=== PATIENT | female | born 1985 | race Caucasian/White ===

== ENCOUNTER 2016-11-15 18:20 | Inpatient (IN) | payer OTHER ==
[~2016-11-15] VITALS: Ht 162.6 cm; Wt 85.7 kg
[2016-11-15 21:15] VITALS: BP 140/80
[2016-11-15 21:30] VITALS: BP 140/80
--- NOTE | 2016-11-15 22:00 | NUR ---
RN NOTE; RECEIVED PT DIRECT ADMIT FROM [facility]. A, OX4. W/ ANXIETY AND C/O ABD PAIN. BREATHING EVENLY. NO SOB. NAD. SKIN WARM AND DRY. MEDICAL INFO AND HX WAS OBTAINED FROM THE PT AND THE MEDICAL RECORDS FROM [facility]. VS: WNL. NEEDS ATTENDED. CALL LIGHT WITHIN REACH, WILL CONT TO MONITOR AND WILL F/U W/ MD'S ORDERS.
[2016-11-15] MEDS ORDERED: Z GUARD REMEDY 2 OZ OINT TP PRN (22:30)
[2016-11-15] MEDS ORDERED: ONDANSETRON HCL/PF 4 MG/2 ML VIAL IVP PRN (22:30)
[2016-11-15] MEDS ORDERED: MAGNESIUM HYDROXIDE 30 ML UDC PO PRN (22:30)
[2016-11-15] MEDS ORDERED: MAG HYDROX/AL HYDROX/SIMETH 30 ML UDC PO PRN (22:30)
[2016-11-15] MEDS ORDERED: ACETAMINOPHEN 325 MG TABLET PO PRN (22:30)
[2016-11-15] MEDS ORDERED: HYDROCODONE/APAP 5/325MG 1 EACH TABLET PO PRN (22:30)
[2016-11-15] MEDS ORDERED: ZOLPIDEM TARTRATE 5 MG TABLET PO PRN (22:30)
--- NOTE | 2016-11-15 22:30 | NUR ---
SPOKE TO [place] CNC PROGRAMMER AND INFORMED HER RE PT'S ARRIVAL. WILL WAIT FOR ADMITTING ORDERS.
[2016-11-15] MEDS ORDERED: MORPHINE SULFATE INJ 2 MG/ML DISP.SYRIN ONE (22:35)
[2016-11-15] MEDS ORDERED: IV D5/0.45 NACL 1,000 ML IV ONE (22:35)
[2016-11-15] MEDS ORDERED: IV SET PRIMARY PUMP SET 1 EA INFUS.SET MC ONE (22:36)
[2016-11-15] MEDS: MORPHINE SULFATE INJ 2 MG/ML DISP.SYRIN IV PRN (22:41)
--- NOTE | 2016-11-15 22:41 | NUR ---
MORPHINE GIVEN ORDERED PER PT'S REQUEST FOR C/O SEVERE ABD. PAIN. WILL CONT TO MONITOR
[2016-11-15] MEDS ORDERED: ZOLPIDEM TARTRATE 5 MG TABLET ONE (22:46)
[2016-11-15] MEDS: IV D5/0.45 NACL 1,000 ML IV PRN (22:47)
--- NOTE | 2016-11-15 22:51 | NUR ---
AMBIEN GIVEN ORDERED PER PT'S REQUEST FOR C/O AGITATION AND INSOMNIA. PT WAS EDUCATED REGARDING THE RISK VS. BENEFITS OF TAKING MORPHINE AND SLEEPING MED TOGETHER. HOWEVER PT VERY ANXIOUS AND SHAKY AND REQUESTING TO TAKE THEM TO BE ABLE TO SLEEP.
[2016-11-15 22:58] LABS: BASOPHILS # (AUTO) 0.1 /CMM (0.0-0.2); BASOPHILS % (AUTO) 0.7 % (0.0-2.0); EOSINOPHILS % (AUTO) 0.2 % (0.0-6.0); HEMATOCRIT 34 % (33-45); HEMOGLOBIN 10.6 g/dL (11.5-14.8); LYMPHOCYTES # (AUTO) 2.3 /CMM (0.8-4.8); LYMPHOCYTES % (AUTO) 20.8 % (20.0-44.0); MEAN CORPUSCULAR HEMOGLOBIN 24 PG (26.0-33.0); MEAN CORPUSCULAR HGB CONC 32 g/dl (31.0-36.0); MEAN CORPUSCULAR VOLUME 76 fL (82-100); MONOCYTES # (AUTO) 0.7 /CMM (0.1-1.30); MONOCYTES % (AUTO) 6.3 % (2.0-12.0); PLATELET COUNT (AUTO) 375 /CMM (150-450); RED BLOOD CELL COUNT(AUTO) 4.41 MIL/uL (4.0-5.2); WHITE BLOOD COUNT (AUTO) 11.1 K/uL (4.3-11.0)
[2016-11-15 23:13] LABS: CALCIUM, SERUM 8.1 mg/dL (8.5-10.1); CREATININE 0.5 mg/dL (0.6-1.3); MAGNESIUM 1.7 mg/dL (1.8-2.4); PHOSPHORUS 3.4 mg/dL (2.5-4.9)
[2016-11-15 23:19] LABS: POTASSIUM 4.1 mmol/L (3.5-5.1)
[2016-11-16] MEDS ORDERED: LURA40TA PO (00:21)
[2016-11-16] MEDS ORDERED: GABA300C PO (00:21)
[2016-11-16] MEDS ORDERED: ALPR2TAB2 PO (00:21)
[2016-11-16] MEDS ORDERED: MORPHINE SULFATE INJ 2 MG/ML DISP.SYRIN ONE (03:18)
[2016-11-16] MEDS: MORPHINE SULFATE INJ 2 MG/ML DISP.SYRIN IV PRN ×3 (03:22→12:06)
--- NOTE | 2016-11-16 03:24 | NUR ---
MORPHINE GIVEN ORDERED PER PT'S REQUEST FOR C/O SEVERE ABD. PAIN. WILL CONT TO MONITOR
[2016-11-16] MEDS ORDERED: HYDROCODONE/APAP 5/325MG 1 EACH TABLET ONE (05:54)
--- NOTE | 2016-11-16 06:01 | NUR ---
NORCO 5-325 GIVEN FOR C/O MODERATE ABD. PAIN. WILL CONT TO MONITOR
--- NOTE | 2016-11-16 06:21 | NUR ---
RN NOTE; PT IN BED AWAKE AND ALERT. BREATHING EVENLY. NO SOB. NAD. SKIN WARM ND DRY. W/ ON AND OFF C/O ABD. PAIN,. MEDICATED ORDERED PER PT'S REQUEST. ASSISTED W/ ADLS. CALL LIGHT WITHIN REACH. WILL CONT TO MONITOR AND WILL ENDORSE TO AM SHIFT FOR SONYA.
[2016-11-16 06:40] LABS: BASOPHILS # (AUTO) 0.1 /CMM (0.0-0.2); BASOPHILS % (AUTO) 0.6 % (0.0-2.0); EOSINOPHILS # (AUTO) 0.2 /CMM (0.0-0.7); EOSINOPHILS % (AUTO) 2.5 % (0.0-6.0); HEMATOCRIT 32 % (33-45); HEMOGLOBIN 10.3 g/dL (11.5-14.8); LYMPHOCYTES # (AUTO) 3.4 /CMM (0.8-4.8); LYMPHOCYTES % (AUTO) 36.2 % (20.0-44.0); MEAN CORPUSCULAR HEMOGLOBIN 25 PG (26.0-33.0); MEAN CORPUSCULAR HGB CONC 33 g/dl (31.0-36.0); MEAN CORPUSCULAR VOLUME 76 fL (82-100); MONOCYTES # (AUTO) 0.7 /CMM (0.1-1.30); MONOCYTES % (AUTO) 7.9 % (2.0-12.0); NEUTROPHILS % (AUTO) 52.8 % (43.0-81.0); PLATELET COUNT (AUTO) 315 /CMM (150-450); RDW COEFFICIENT OF VARIATION 16.1 (11.5-15.0); RED BLOOD CELL COUNT(AUTO) 4.15 MIL/uL (4.0-5.2); WHITE BLOOD COUNT (AUTO) 9.4 K/uL (4.3-11.0)
[2016-11-16 06:44] LABS: CALCIUM, SERUM 8.3 mg/dL (8.5-10.1); CREATININE 0.5 mg/dL (0.6-1.3); MAGNESIUM 1.8 mg/dL (1.8-2.4); PHOSPHORUS 3.5 mg/dL (2.5-4.9); POTASSIUM 3.7 mmol/L (3.5-5.1)
--- NOTE | 2016-11-16 07:10 | NUR ---
MS RN OPENING RECEIVED PATIENT A/OX4 DENIES SOB, DIFFICULTY BREATHING, NO NAUSEA OR VOMITING. PATIENT REQUESTING IV PAIN MEDICATIONS. NOTIFIED AT 0722 THIS IS ABLE TO BE GIVEN AGAIN IF SHE WANTS. PATIENT DOES NOT APPEAR TO BE IN ANY DISTRESS RESTING COMFORTABLY AND NO SOB DIFFICULTY BREATHING. PATIENT WITH CALL LIGHT IN REACH, BED LOWERED AND LOCKED, RAILS UPX3 FOR SAFETY AND WILL ROUND Q2H OR LESS PER NEEDS.
[2016-11-16] MEDS ORDERED: PANTOPRAZOLE 40 MG TABLET.DR PO SCH (07:30)
[2016-11-16 08:00] VITALS: BP 118/80
[2016-11-16] MEDS: IV D5/0.45 NACL 1,000 ML IV PRN (12:00)
--- NOTE | 2016-11-16 12:00 | NUR ---
MS RN NOTES DR AMATO AT BEDSIDE
--- NOTE | 2016-11-16 12:43 | NUR ---
MS RN NOTES PER MD ADVANCE DIET AT DINNER TO SOFT DIET. IF PATIENT TOLERATES NO N/V/D OK DISCHARGE
[2016-11-16] MEDS: HYDROMORPHONE 1 MG/1 ML DISP.SYRIN IV PRN ×2 (13:53→18:05)
[2016-11-16] MEDS ORDERED: HYDR-552 PO (14:00)
[2016-11-16] MEDS ORDERED: METO-295 PO (14:00)
[2016-11-16] MEDS ORDERED: GABAPENTIN 300 MG CAPSULE PO SCH (14:00)
[2016-11-16 16:00] VITALS: BP 115/76
--- NOTE | 2016-11-16 18:55 | NUR ---
MS HANDSTITCHING MACHINE COLLAR FELLER PATIENT STABLE PAIN CONTROLLED WITH PRN MEDICATIONS AND NON PHARM MEASURES. PATIENT IV REMOVED PRESSURE AND DRESSING APPLIED NO BLEEDING NOTED. PATIENT EDUCATED ON DISCHARGE AND GIVEN GI MD INFO AND NUMBERS FOR FOLLOW UP. TANISHA CALLED FOR PATIENT. PATIENT SIGNED ALL DC PAPERWORK AND ALL BELONGINGS ACCOUNTED FOR AND SIGNED. ALL QUESTIONS ANSWERED AND PATIENT LEFT IN STABLE CONDITION NO COMPLICATIONS.
== END 2016-11-16 18:57 | disposition home or self-care (01) | DRG 254 ==
LOC: MEDSG2 21:10
PROVIDERS: ADMIT Internal Medicine; ATTEND Internal Medicine
DX: K31.84 Gastroparesis (principal); F32.9 Major depressive disorder, single episode, unspecified; E66.9 Obesity, unspecified; E86.0 Dehydration; F41.9 Anxiety disorder, unspecified; G89.4 Chronic pain syndrome; Z98.84 Bariatric surgery status; Z68.32 Body mass index [BMI] 32.0-32.9, adult
CPT/HCPCS: 36415; 80048-TC; 80061-TC; 83735-TC; 84100-TC; 85025-TC; 87081-TC; J1170; J2270; J3490; Z7610

== ENCOUNTER 2016-11-17 14:27 | Emergency (ER) | payer OTHER ==
[~2016-11-17] VITALS: Ht 160 cm; Wt 86.2 kg
[~2016-11-17 14:27] MED LIST: ALPR2TAB2 PO; GABA300C PO; HYDR-552 PO; LURA40TA PO; METO-295 PO
[2016-11-17] MEDS ORDERED: MORPHINE SULFATE INJ 4 MG/ML DISP.SYRIN ONE (15:10)
[2016-11-17] MEDS ORDERED: IV SET PRIMARY 1 EA INFUS.SET MC ONE (15:10)
[2016-11-17] MEDS ORDERED: IV NS 0.9% 1,000 ML ONE (15:10)
[2016-11-17] MEDS ORDERED: diphenhydrAMINE HCL 50 MG/ML VIAL ONE (15:10)
[2016-11-17] MEDS ORDERED: METOCLOPRAMIDE HCL 10 MG/2 ML VIAL ONE (15:10)
[2016-11-17 15:21] LABS: APPEARANCE,URINE Cloudy (CLEAR); BILIRUBIN,URINE Negative (NEGATIVE); BLOOD, URINE Trace-lysed Ery/uL (NEGATIVE); COLOR,URINE Light yellow (YELLOW); KETONES,URINE Negative (NEGATIVE); LEUKOCYTE ESTERASE ,URINE Negative (NEGATIVE); NITRITE, URINE Negative (NEGATIVE); PH,URINE 5.5 (5.0-8.0); PROTEIN,URINE Negative (NEGATIVE); UGLUCOSE Negative (NEGATIVE)
[2016-11-17 15:22] LABS: BASOPHILS # (AUTO) 0.5 /CMM (0.0-0.2); BASOPHILS % (AUTO) 4.1 % (0.0-2.0); EOSINOPHILS # (AUTO) 0.1 /CMM (0.0-0.7); EOSINOPHILS % (AUTO) 0.6 % (0.0-6.0); HEMATOCRIT 36 % (33-45); HEMOGLOBIN 11.7 g/dL (11.5-14.8); LYMPHOCYTES # (AUTO) 1.7 /CMM (0.8-4.8); LYMPHOCYTES % (AUTO) 14.8 % (20.0-44.0); MEAN CORPUSCULAR HEMOGLOBIN 25 PG (26.0-33.0); MEAN CORPUSCULAR HGB CONC 33 g/dl (31.0-36.0); MEAN CORPUSCULAR VOLUME 76 fL (82-100); MONOCYTES # (AUTO) 0.5 /CMM (0.1-1.30); MONOCYTES % (AUTO) 4.4 % (2.0-12.0); NEUTROPHILS # (AUTO) 8.4 /CMM (1.8-8.9); NEUTROPHILS % (AUTO) 76.1 % (43.0-81.0); PLATELET COUNT (AUTO) 378 /CMM (150-450); RDW COEFFICIENT OF VARIATION 14.8 (11.5-15.0); RED BLOOD CELL COUNT(AUTO) 4.74 MIL/uL (4.0-5.2); WHITE BLOOD COUNT (AUTO) 11.3 K/uL (4.3-11.0)
[2016-11-17] MEDS: MORPHINE SULFATE INJ 2 MG/ML DISP.SYRIN IV ONE (15:23)
[2016-11-17] MEDS: IV NS 0.9% 1,000 ML BAG IV ONE (15:23)
[2016-11-17] MEDS: diphenhydrAMINE HCL 50 MG/ML VIAL IV ONE (15:23)
[2016-11-17] MEDS: METOCLOPRAMIDE HCL 10 MG/2 ML VIAL IV ONE (15:23)
[2016-11-17 15:25] LABS: PREGNANCY TEST URINE QUAL NEGATIVE (NEGATIVE)
[2016-11-17 15:28] LABS: CALCIUM, SERUM 8.7 mg/dL (8.5-10.1); CREATININE 0.6 mg/dL (0.6-1.3); POTASSIUM 3.9 mmol/L (3.5-5.1)
[2016-11-17 15:31] LABS: BACTERIA,URINE Few /HPF (None Seen); RBC,URINE 0-2 /HPF (0-2); SQUAMOUS EPITHELIAL CELL,UR Many /HPF (None Seen); WBC,URINE 0-2 /HPF (0-3)
[2016-11-17 15:34] LABS: ALBUMIN 3.9 g/dL (3.4-5.0); BILIRUBIN,DIRECT 0.1 mg/dL (0.0-0.2); BILIRUBIN,TOTAL 0.5 mg/dL (0.2-1.0); TOTAL PROTEIN, SERUM 7.5 g/dL (6.4-8.2)
[2016-11-17] MEDS ORDERED: HYDROMORPHONE 1 MG/1 ML DISP.SYRIN ONE (16:46)
[2016-11-17] MEDS: HYDROMORPHONE 1 MG/1 ML DISP.SYRIN IV ONE (16:52)
[2016-11-17 17:55] VITALS: BP 132/78
== END 2016-11-17 17:56 | disposition home or self-care (01) ==
LOC: ER 14:28
DX: R10.84 Generalized abdominal pain (principal); R11.2 Nausea with vomiting, unspecified; D72.829 Elevated white blood cell count, unspecified; R71.8 Other abnormality of red blood cells; I10 Essential (primary) hypertension; Z98.84 Bariatric surgery status; Z90.49 Acquired absence of other specified parts of digestive tract; Z88.8 Allergy status to other drugs, medicaments and biological substances
CPT/HCPCS: 36415; 80048-TC; 80076-TC; 81000-TC; 83690-TC; 84703-TC; 85025-TC; A4606; J1170; J1200; J2270; J2765; J7030; Z7610

== ENCOUNTER 2016-11-18 13:35 | Emergency (ER) | payer OTHER ==
[~2016-11-18] VITALS: Ht 162.6 cm; Wt 84.4 kg
[2016-11-18] MEDS ORDERED: IV SET PRIMARY 1 EA INFUS.SET MC ONE (14:34)
[2016-11-18] MEDS ORDERED: PANTOPRAZOLE 40 MG VIAL ONE (14:34)
[2016-11-18] MEDS ORDERED: IV NS 0.9% 1,000 ML ONE (14:34)
[2016-11-18] MEDS ORDERED: diphenhydrAMINE HCL 50 MG/ML VIAL ONE (14:34)
[2016-11-18] MEDS ORDERED: METOCLOPRAMIDE HCL 10 MG/2 ML VIAL ONE (14:34)
[2016-11-18] MEDS: diphenhydrAMINE HCL 50 MG/ML VIAL IV ONE (14:57)
[2016-11-18] MEDS: METOCLOPRAMIDE HCL 10 MG/2 ML VIAL IV ONE (14:57)
[2016-11-18] MEDS: PANTOPRAZOLE 40 MG VIAL IV ONE (14:57)
[2016-11-18] MEDS: IV NS 0.9% 1,000 ML BAG IV ONE (14:57)
[2016-11-18 15:07] LABS: BASOPHILS # (AUTO) 0.1 /CMM (0.0-0.2); BASOPHILS % (AUTO) 0.7 % (0.0-2.0); EOSINOPHILS # (AUTO) 0.1 /CMM (0.0-0.7); EOSINOPHILS % (AUTO) 0.8 % (0.0-6.0); HEMATOCRIT 36 % (33-45); HEMOGLOBIN 11.4 g/dL (11.5-14.8); LYMPHOCYTES # (AUTO) 2.4 /CMM (0.8-4.8); LYMPHOCYTES % (AUTO) 25.1 % (20.0-44.0); MEAN CORPUSCULAR HEMOGLOBIN 24 PG (26.0-33.0); MEAN CORPUSCULAR HGB CONC 31 g/dl (31.0-36.0); MEAN CORPUSCULAR VOLUME 76 fL (82-100); MONOCYTES # (AUTO) 0.6 /CMM (0.1-1.30); MONOCYTES % (AUTO) 6.3 % (2.0-12.0); NEUTROPHILS # (AUTO) 6.4 /CMM (1.8-8.9); NEUTROPHILS % (AUTO) 67.1 % (43.0-81.0); PLATELET COUNT (AUTO) 389 /CMM (150-450); RDW COEFFICIENT OF VARIATION 14.7 (11.5-15.0); RED BLOOD CELL COUNT(AUTO) 4.76 MIL/uL (4.0-5.2); WHITE BLOOD COUNT (AUTO) 9.6 K/uL (4.3-11.0)
[2016-11-18 15:08] LABS: APPEARANCE,URINE Slightly Cloudy (CLEAR); BILIRUBIN,URINE Negative (NEGATIVE); BLOOD, URINE Negative Ery/uL (NEGATIVE); COLOR,URINE Yellow (YELLOW); KETONES,URINE Negative (NEGATIVE); LEUKOCYTE ESTERASE ,URINE Negative (NEGATIVE); NITRITE, URINE Negative (NEGATIVE); PH,URINE 7.5 (5.0-8.0); PROTEIN,URINE Trace mg/dl (NEGATIVE); UGLUCOSE Negative (NEGATIVE)
[2016-11-18 15:20] LABS: ALBUMIN 3.6 g/dL (3.4-5.0); BILIRUBIN,DIRECT 0.1 mg/dL (0.0-0.2); BILIRUBIN,TOTAL 0.6 mg/dL (0.2-1.0); CALCIUM, SERUM 8.6 mg/dL (8.5-10.1); CREATININE 0.6 mg/dL (0.6-1.3); POTASSIUM 3.8 mmol/L (3.5-5.1); RBC,URINE 0-2 /HPF (0-2); WBC,URINE 0-2 /HPF (0-3)
[2016-11-18 15:21] LABS: BACTERIA,URINE Few /HPF (None Seen); MUCUS,URINE Moderate /LPF (None Seen); SQUAMOUS EPITHELIAL CELL,UR Moderate /HPF (None Seen)
[2016-11-18] MEDS ORDERED: HYDROMORPHONE 1 MG/1 ML DISP.SYRIN ONE (16:10)
[2016-11-18] MEDS: HYDROMORPHONE 1 MG/1 ML DISP.SYRIN IV ONE (16:18)
[2016-11-18 16:33] VITALS: BP 131/78
== END 2016-11-18 16:35 | disposition home or self-care (01) ==
LOC: ER 13:37
DX: R10.84 Generalized abdominal pain (principal); G89.29 Other chronic pain; D64.9 Anemia, unspecified; F41.9 Anxiety disorder, unspecified; I10 Essential (primary) hypertension; Z98.84 Bariatric surgery status; Z90.49 Acquired absence of other specified parts of digestive tract; Z88.8 Allergy status to other drugs, medicaments and biological substances
CPT/HCPCS: 36415; 80048-TC; 80076-TC; 81000-TC; 83690-TC; 84703-TC; 85025-TC; A4606; C9113; J1170; J1200; J2765; J7030; Z7610

== ENCOUNTER 2016-11-28 00:52 | Emergency (ER) | payer OTHER ==
[~2016-11-28] VITALS: Ht 162.6 cm; Wt 83.9 kg
--- NOTE | 2016-11-28 01:01 | NUR ---
to bed 1 ambulatory c/o pain, burning , frequency upon urination since yesterday, n/v x4 days. pt aaox4 no acute distress noted, resp evena nd unlabored. pending er md estrada.
[2016-11-28] MEDS ORDERED: ONDANSETRON 4 MG TAB.RAPDIS ONE (01:23)
[2016-11-28] MEDS ORDERED: PHENAZOPYRIDINE HCL 200 MG TABLET ONE (01:25)
[2016-11-28] MEDS ORDERED: ONDANSETRON 4 MG TAB.RAPDIS SL ONE (01:30)
[2016-11-28] MEDS ORDERED: PHENAZOPYRIDINE HCL 200 MG TABLET PO ONE (01:30)
[2016-11-28 02:02] LABS: APPEARANCE,URINE CLEAR (CLEAR); BILIRUBIN,URINE NEGATIVE (NEGATIVE); BLOOD, URINE 2+ Ery/uL (NEGATIVE); COLOR,URINE YELLOW (YELLOW); KETONES,URINE NEGATIVE (NEGATIVE); LEUKOCYTE ESTERASE ,URINE NEGATIVE (NEGATIVE); NITRITE, URINE NEGATIVE (NEGATIVE); PROTEIN,URINE NEGATIVE (NEGATIVE); UGLUCOSE NEGATIVE (NEGATIVE); UROBILINOGEN,URINE 0.2 EU/dL (0.2)
[2016-11-28 02:08] LABS: PREGNANCY TEST URINE QUAL NEGATIVE (NEGATIVE)
[2016-11-28 02:12] LABS: BACTERIA,URINE None seen /HPF (None Seen); CALCIUM OXALATE CRYSTALS,UR Many /HPF (None Seen); MUCUS,URINE Few /LPF (None Seen); SQUAMOUS EPITHELIAL CELL,UR Moderate /HPF (None Seen); WBC,URINE 0-2 /HPF (0-3)
[2016-11-28] MEDS ORDERED: ONDANSETRON HCL/PF 4 MG/2 ML VIAL IVP ONE (02:30)
[2016-11-28] MEDS ORDERED: METOCLOPRAMIDE HCL 10 MG TABLET PO ONE (02:30)
[2016-11-28] MEDS ORDERED: MORPHINE SULFATE INJ 2 MG/ML DISP.SYRIN IV ONE (02:30)
[2016-11-28] MEDS ORDERED: IV NS 0.9% 1,000 ML BAG IV ONE (02:30)
[2016-11-28] MEDS ORDERED: METOCLOPRAMIDE HCL 10 MG/2 ML VIAL ONE (02:40)
[2016-11-28] MEDS ORDERED: MORPHINE SULFATE INJ 4 MG/ML DISP.SYRIN ONE (02:40)
[2016-11-28] MEDS ORDERED: IV NS 0.9% 1,000 ML ONE (02:40)
[2016-11-28] MEDS ORDERED: IV SET PRIMARY 1 EA INFUS.SET MC ONE (02:40)
--- NOTE | 2016-11-28 02:50 | NUR ---
pt medicarted by rn per er md order.
[2016-11-28] MEDS ORDERED: METOCLOPRAMIDE HCL 10 MG/2 ML VIAL IV ONE (03:00)
[2016-11-28 03:05] LABS: BASOPHILS # (AUTO) 0.1 /CMM (0.0-0.2); BASOPHILS % (AUTO) 0.7 % (0.0-2.0); EOSINOPHILS # (AUTO) 0.2 /CMM (0.0-0.7); EOSINOPHILS % (AUTO) 2.1 % (0.0-6.0); HEMATOCRIT 34 % (33-45); HEMOGLOBIN 10.7 g/dL (11.5-14.8); LYMPHOCYTES # (AUTO) 2.8 /CMM (0.8-4.8); MEAN CORPUSCULAR HEMOGLOBIN 24 PG (26.0-33.0); MEAN CORPUSCULAR HGB CONC 32 g/dl (31.0-36.0); MEAN CORPUSCULAR VOLUME 76 fL (82-100); MONOCYTES # (AUTO) 0.9 /CMM (0.1-1.30); MONOCYTES % (AUTO) 7.5 % (2.0-12.0); NEUTROPHILS # (AUTO) 7.6 /CMM (1.8-8.9); NEUTROPHILS % (AUTO) 65.7 % (43.0-81.0); PLATELET COUNT (AUTO) 360 /CMM (150-450); RDW COEFFICIENT OF VARIATION 16.2 (11.5-15.0); RED BLOOD CELL COUNT(AUTO) 4.42 MIL/uL (4.0-5.2); WHITE BLOOD COUNT (AUTO) 11.5 K/uL (4.3-11.0)
[2016-11-28 03:14] LABS: CALCIUM, SERUM 8.7 mg/dL (8.5-10.1); CREATININE 0.6 mg/dL (0.6-1.3)
--- NOTE | 2016-11-28 04:33 | NUR ---
Patient discharged to home in stable condition. Written and verbal after care instructions given. Patient verbalizes understanding of instruction. IV removed. Catheter intact and site benign. Pressure and 4x4 applied to site. No bleeding noted. ambulatory with a steady gait noted. pt aaox4 no acute distress noted, resp even and unlabored. advie pt not to drive or operate any machinery due to pt was given anrcotic medicine. pt verbalize understanding.
[2016-11-28 04:38] VITALS: BP 127/75
== END 2016-11-28 04:39 | disposition home or self-care (01) ==
LOC: ER 00:54
DX: R10.84 Generalized abdominal pain (principal); G89.29 Other chronic pain; R11.2 Nausea with vomiting, unspecified; F41.9 Anxiety disorder, unspecified; I10 Essential (primary) hypertension; K31.84 Gastroparesis; Z90.49 Acquired absence of other specified parts of digestive tract; Z98.84 Bariatric surgery status; Z88.8 Allergy status to other drugs, medicaments and biological substances
CPT/HCPCS: 36415; 72128; 74176; 80048; 81001; 84703; 85025; 96361; 96374; 96375; 99285; A4606; J2270; J2765; J7030; Q0162; Z7610; 81000-TC

== ENCOUNTER 2016-12-21 13:44 | Emergency (ER) | payer OTHER ==
[~2016-12-21] VITALS: Ht 162.6 cm; Wt 83.9 kg
--- NOTE | 2016-12-21 13:52 | NUR ---
PT AMBULATORY TO ER BED 09. C/O RLQ ABDOMINAL PAIN W/ CRAMPING. GOWNED AND PLACED ON MONITOR. VSS. AWAITING MD WEST.
--- NOTE | 2016-12-21 14:15 | NUR ---
DR MESA AT BEDSIDE FOR EVAL.
--- NOTE | 2016-12-21 14:26 | NUR ---
IV LINE STARTED BLOOD DRAWN AND SENT TO LAB.
[2016-12-21 14:31] LABS: BASOPHILS # (AUTO) 0.1 /CMM (0.0-0.2); BASOPHILS % (AUTO) 1.4 % (0.0-2.0); EOSINOPHILS # (AUTO) 0.3 /CMM (0.0-0.7); EOSINOPHILS % (AUTO) 3.2 % (0.0-6.0); HEMATOCRIT 35 % (33-45); HEMOGLOBIN 11.2 g/dL (11.5-14.8); LYMPHOCYTES # (AUTO) 2.1 /CMM (0.8-4.8); LYMPHOCYTES % (AUTO) 23.6 % (20.0-44.0); MEAN CORPUSCULAR HEMOGLOBIN 24 PG (26.0-33.0); MEAN CORPUSCULAR HGB CONC 32 g/dl (31.0-36.0); MEAN CORPUSCULAR VOLUME 74 fL (82-100); MONOCYTES # (AUTO) 0.7 /CMM (0.1-1.30); MONOCYTES % (AUTO) 7.4 % (2.0-12.0); NEUTROPHILS # (AUTO) 5.9 /CMM (1.8-8.9); NEUTROPHILS % (AUTO) 64.4 % (43.0-81.0); PLATELET COUNT (AUTO) 379 /CMM (150-450); RDW COEFFICIENT OF VARIATION 14.9 (11.5-15.0); WHITE BLOOD COUNT (AUTO) 9.1 K/uL (4.3-11.0)
[2016-12-21 14:32] LABS: APPEARANCE,URINE Clear (CLEAR); BILIRUBIN,URINE Negative (NEGATIVE); BLOOD, URINE Moderate Ery/uL (NEGATIVE); COLOR,URINE Yellow (YELLOW); KETONES,URINE Negative (NEGATIVE); LEUKOCYTE ESTERASE ,URINE Negative (NEGATIVE); NITRITE, URINE Negative (NEGATIVE); PROTEIN,URINE Negative (NEGATIVE); UGLUCOSE 100 MG/DL mg/dL (NEGATIVE)
[2016-12-21 14:35] LABS: PREGNANCY TEST URINE QUAL NEGATIVE (NEGATIVE)
[2016-12-21 14:38] LABS: BACTERIA,URINE None seen /HPF (None Seen); RBC,URINE 0-3 /HPF (0-2); SQUAMOUS EPITHELIAL CELL,UR Few /HPF (None Seen); WBC,URINE 0-3 /HPF (0-3)
[2016-12-21 14:40] LABS: CALCIUM, SERUM 8.2 mg/dL (8.5-10.1); CREATININE 0.7 mg/dL (0.6-1.3); POTASSIUM 3.9 mmol/L (3.5-5.1)
[2016-12-21] MEDS ORDERED: MORPHINE SULFATE INJ 4 MG/ML DISP.SYRIN ONE (14:45)
[2016-12-21] MEDS ORDERED: ONDANSETRON HCL/PF 4 MG/2 ML VIAL ONE ×2 (14:45→15:22)
[2016-12-21 14:46] LABS: ALBUMIN 3.6 g/dL (3.4-5.0); BILIRUBIN,DIRECT 0.1 mg/dL (0.0-0.2); BILIRUBIN,TOTAL 0.5 mg/dL (0.2-1.0); TOTAL PROTEIN, SERUM 7.1 g/dL (6.4-8.2)
[2016-12-21] MEDS: ONDANSETRON HCL/PF 4 MG/2 ML VIAL IVP ONE ×2 (14:46→15:24)
[2016-12-21] MEDS: MORPHINE SULFATE INJ 2 MG/ML DISP.SYRIN IV ONE (14:47)
--- NOTE | 2016-12-21 14:49 | NUR ---
PT TO RADIOLOGY FOR ABDOMONAL CT SCAN VIA [facility].
[2016-12-21] MEDS: IV NS 0.9% 1,000 ML BAG IV ONE (14:58)
[2016-12-21] MEDS ORDERED: HYDROMORPHONE 1 MG/1 ML DISP.SYRIN ONE (15:22)
[2016-12-21] MEDS: HYDROMORPHONE INJ 2 MG/ML DISP.SYRIN IV ONE (15:25)
--- NOTE | 2016-12-21 16:31 | NUR ---
Patient discharged to home in stable condition. Written and verbal after care instructions given. Patient verbalizes understanding of instruction.IV removed. Catheter intact and site benign. Pressure and 4x4 applied to site. No bleeding noted.
[2016-12-21 16:32] VITALS: BP 123/76
[2016-12-22] MEDS ORDERED: HYDROMORPHONE 1 MG/1 ML DISP.SYRIN ONE (23:40)
== END 2016-12-21 16:33 | disposition home or self-care (01) ==
LOC: ER 13:46
DX: R10.31 Right lower quadrant pain (principal); F41.9 Anxiety disorder, unspecified; I10 Essential (primary) hypertension; K44.9 Diaphragmatic hernia without obstruction or gangrene; K57.30 Diverticulosis of large intestine without perforation or abscess without bleeding; N83.201 Unspecified ovarian cyst, right side; Z90.49 Acquired absence of other specified parts of digestive tract; Z98.84 Bariatric surgery status; Z88.6 Allergy status to analgesic agent; Z88.8 Allergy status to other drugs, medicaments and biological substances
CPT/HCPCS: 36415; 72128-TC; 80048-TC; 80076-TC; 81000-TC; 83690-TC; 84703-TC; 85025-TC; A4606; J1170; J2270; J2405; J7030; Z7610

== ENCOUNTER 2016-12-22 21:39 | Inpatient (IN) | payer OTHER ==
[~2016-12-22] VITALS: Ht 162.6 cm; Wt 88.5 kg
--- NOTE | 2016-12-22 21:55 | NUR ---
PT A/OX4 BREATHING EFFORTLESLY ON ROOM AIR, PT STATES SHE WAS HERE YESTERDAY FOR GENERERALIZED ABD PAIN AND STATES SHE WAS DIAGNOSED WITH ABDOMINAL PAIN, PT STATES SHE IS HERE TODAY BECAUSE THE PAIN IS NOW VAGINAL WITH VAGIANL CRAMPING AND BLEEDING, PT DENIES AT THIS TIME, PT STATES SHE HAS AN IUD, PT ON MONITOR, IN GOWN, URINE COLLECTED, IV PLACED, BLOOD DRAWN AND SENT TO LAB, MADE AWARE WILL CONTINUE TO MONITOR.
[2016-12-22] MEDS ORDERED: DEXTROSE 50%-WATER 50 ML DISP.SYRIN ONE (22:18)
[2016-12-22] MEDS ORDERED: IV NS 0.9% 1,000 ML BAG IV ONE (22:30)
[2016-12-22 22:40] LABS: BASOPHILS % (AUTO) 0.2 % (0.0-2.0); EOSINOPHILS # (AUTO) 0.3 /CMM (0.0-0.7); EOSINOPHILS % (AUTO) 2.7 % (0.0-6.0); HEMATOCRIT 36 % (33-45); HEMOGLOBIN 11.4 g/dL (11.5-14.8); LYMPHOCYTES # (AUTO) 1.8 /CMM (0.8-4.8); LYMPHOCYTES % (AUTO) 17.4 % (20.0-44.0); MEAN CORPUSCULAR HEMOGLOBIN 23 PG (26.0-33.0); MEAN CORPUSCULAR HGB CONC 31 g/dl (31.0-36.0); MEAN CORPUSCULAR VOLUME 75 fL (82-100); MONOCYTES # (AUTO) 0.7 /CMM (0.1-1.30); MONOCYTES % (AUTO) 6.5 % (2.0-12.0); NEUTROPHILS # (AUTO) 7.4 /CMM (1.8-8.9); NEUTROPHILS % (AUTO) 73.2 % (43.0-81.0); PLATELET COUNT (AUTO) 370 /CMM (150-450); RDW COEFFICIENT OF VARIATION 15.9 (11.5-15.0); RED BLOOD CELL COUNT(AUTO) 4.88 MIL/uL (4.0-5.2); WHITE BLOOD COUNT (AUTO) 10.1 K/uL (4.3-11.0)
[2016-12-22] MEDS ORDERED: HYDROMORPHONE 1 MG/1 ML DISP.SYRIN ONE (22:45)
[2016-12-22] MEDS ORDERED: ONDANSETRON HCL/PF 4 MG/2 ML VIAL ONE (22:45)
--- NOTE | 2016-12-22 22:45 | NUR ---
ULTRASOUND AT BEDSIDE
[2016-12-22 22:51] LABS: CALCIUM, SERUM 8.2 mg/dL (8.5-10.1); CREATININE 0.7 mg/dL (0.6-1.3); POTASSIUM 3.9 mmol/L (3.5-5.1)
[2016-12-22 22:53] LABS: INR 0.94 (0.87-1.13)
[2016-12-22 22:58] LABS: APPEARANCE,URINE CLEAR (CLEAR); BILIRUBIN,URINE NEGATIVE (NEGATIVE); BLOOD, URINE TRACE-INTA Ery/uL (NEGATIVE); KETONES,URINE NEGATIVE (NEGATIVE); LEUKOCYTE ESTERASE ,URINE NEGATIVE (NEGATIVE); NITRITE, URINE NEGATIVE (NEGATIVE); PROTEIN,URINE NEGATIVE (NEGATIVE); UGLUCOSE TRACE mg/dL (NEGATIVE); UROBILINOGEN,URINE 0.2 EU/dL (0.2)
[2016-12-22] MEDS ORDERED: DEXTROSE 50%-WATER 50 ML DISP.SYRIN IVP ONE ×2 (23:00)
[2016-12-22] MEDS ORDERED: HYDROMORPHONE 1 MG/1 ML DISP.SYRIN IV ONE (23:00)
[2016-12-22] MEDS ORDERED: ONDANSETRON HCL/PF 4 MG/2 ML VIAL IV ONE (23:00)
[2016-12-22 23:02] LABS: COLOR,URINE STRAW (YELLOW)
[2016-12-22 23:07] LABS: BACTERIA,URINE None seen /HPF (None Seen); RBC,URINE NONE SEEN /HPF (0-2); SQUAMOUS EPITHELIAL CELL,UR Rare /HPF (None Seen); WBC,URINE NONE SEEN /HPF (0-3)
[2016-12-22 23:15] LABS: ALBUMIN 3.5 g/dL (3.4-5.0); BILIRUBIN,TOTAL 0.4 mg/dL (0.2-1.0); TOTAL PROTEIN, SERUM 7.6 g/dL (6.4-8.2)
--- NOTE | 2016-12-22 23:37 | NUR ---
PELVIC EXAM SET UP FOR MD CORRALES
[2016-12-23] MEDS ORDERED: OCTREOTIDE 50 MCG in IV NS 0.9% 50 ML IV ONE (00:30)
[2016-12-23] MEDS ORDERED: OCTREOTIDE 1,250 MCG in IV NS 0.9% 247.5 ML IV PRN (00:30)
[2016-12-23] MEDS ORDERED: CEFTRIAXONE 1 G in IV D5W 50 ML IV ONE (00:30)
--- NOTE | 2016-12-23 00:37 | NUR ---
CALLED NURSING EVENT MARKETING INTERN FOR TELE BED
--- NOTE | 2016-12-23 00:41 | NUR ---
CALLED NURSING HOLLOW CORE DOOR FRAME ASSEMBLER TO UPGRADE TO TYREL BED
[2016-12-23] MEDS ORDERED: OCTREOTIDE 500 MCG/ML VIAL ONE (00:43)
[2016-12-23] MEDS ORDERED: OCTREOTIDE 100 MCG/ML VIAL ONE ×2 (00:43→00:45)
--- NOTE | 2016-12-23 00:58 | NUR ---
M/S 304-2
[2016-12-23] MEDS ORDERED: HYDROMORPHONE INJ 2 MG/ML DISP.SYRIN ONE (01:15)
[2016-12-23] MEDS ORDERED: ONDANSETRON HCL/PF 4 MG/2 ML VIAL ONE (01:15)
[2016-12-23] MEDS ORDERED: DEXTROSE 50%-WATER 50 ML DISP.SYRIN ONE (01:31)
[2016-12-23] MEDS ORDERED: CEFTRIAXONE 1GM BAG (ER ONLY) 50 ML IV ONE (01:36)
[2016-12-23 02:00] VITALS: BP_SYST 125; BP_DIAS 85; BP_DIAS 87
[2016-12-23] MEDS ORDERED: GABAPENTIN 300 MG CAPSULE PO SCH (02:00)
[2016-12-23] MEDS ORDERED: Z GUARD REMEDY 2 OZ OINT TP PRN (02:00)
[2016-12-23] MEDS ORDERED: ZOLPIDEM TARTRATE 5 MG TABLET PO PRN (02:00)
[2016-12-23] MEDS ORDERED: HYDROMORPHONE 1 MG/1 ML DISP.SYRIN IV ONE ×2 (02:00)
[2016-12-23] MEDS ORDERED: ACETAMINOPHEN 325 MG TABLET PO PRN (02:00)
[2016-12-23] MEDS ORDERED: MAGNESIUM HYDROXIDE 30 ML UDC PO PRN (02:00)
[2016-12-23] MEDS ORDERED: CEFTRIAXONE 1 G in IV D5W 50 ML IV SCH (02:00)
[2016-12-23] MEDS ORDERED: MAG HYDROX/AL HYDROX/SIMETH 30 ML UDC PO PRN (02:00)
[2016-12-23] MEDS ORDERED: ONDANSETRON HCL/PF 4 MG/2 ML VIAL IVP PRN (02:00)
--- NOTE | 2016-12-23 02:00 | NUR ---
Tele/rn opening notes New admitted patient is a31 y.o female who came to ER reported vaginal cramping and bleeding, Iud user, with hx of htn, anxiety, carpal tunnel, anxiety, anemia. previous hospitalized last november for abdominal pain. Allert/Ox3 on tele reading SR 65. Complain of 9/10abdominal pain.Iv on left hand gauge 18. allergic to nsaids, and lorazepam. patient can ambulate , supervised to bathroom. skin intact,. will continue to monitor and provide care.Call lights within reach. No vaginal bleeding observed,
[2016-12-23 02:30] VITALS: BP 125/85
[2016-12-23 04:00] VITALS: BP 97/67
[2016-12-23] MEDS ORDERED: HYDROCODONE/APAP 5/325MG 1 EACH TABLET ONE (05:33)
[2016-12-23] MEDS: HYDROCODONE/APAP 5/325MG 1 EACH TABLET PO PRN ×2 (05:34→13:47)
--- NOTE | 2016-12-23 05:39 | NUR ---
tele/rn notes tele reading sr w/ arrythmia. patient complained of pain on abdomen informed norco 5-325 mg po prescribed by md at this time and patient informed that pain is severe require more like dilaudid. inform patiient will f/mariela/ in am.
--- NOTE | 2016-12-23 06:16 | NUR ---
tele/rn closing notes patient awake, able to sleep for 3 hours but woke up and verbalized severe pain in abdomen. informed md was contacted regarding pain medication not effective. will endorse to am rn regarding concerns.
[2016-12-23 06:48] VITALS: BP 113/79
[2016-12-23] MEDS ORDERED: HYDROMORPHONE INJ 2 MG/ML DISP.SYRIN IV PRN (07:00)
--- NOTE | 2016-12-23 07:00 | NUR ---
tele/rn notes md contacted regarding pain medication norco 5-325 mg po not effective and md order to give dilaudid 2mg/1ml iv injection one time only. order to carryout.
--- NOTE | 2016-12-23 07:06 | NUR ---
MANAGER ENGAGEMENT OPENING NOTES RECEIVED PT. FROM NIGHTSHIFT NURSE IN STABLE CONDITION. NO SOB NOTED. BREATHING IS EVEN AND UNLABORED. PT. COMPLAINS OF ABDOMINAL PAIN AND RATES IT AN 8/10. WILL ADMINISTER ONE TIME DOSE OF DILAUDID ORDERED. PT. IS SINUS LIEN ON THE TELE MONITOR WITH A HR OF 65. IV PRESENT ON LEFT HAND 18 G PATENT AND INTACT. NO REDNESS OR SIGNS OF INFILTRATION NOTED. BED IN OW LOCKED POSITION, SIDE RAILS UP X2, CALL LIGHT WITHIN REACH. WILL CONTINUE TO MANAGE PAIN AND CLOSELY MONITOR.
[2016-12-23] MEDS ORDERED: ALPRAZOLAM 1 MG TABLET PO PRN (08:00)
[2016-12-23] MEDS: METOCLOPRAMIDE HCL 10 MG TABLET PO SCH ×3 (09:48→17:25)
--- NOTE | 2016-12-23 18:17 | NUR ---
CITY PLANNING AIDE NOTES PT. LEFT FACILITY IN STABLE CONDITION. ALL NEEDS WERE MET DURING SHIFT AND ORDERS CARRIED OUT ACCORDINGLY/ PT LEFT WITH ALL BELONGINGS. BELONGINGS FORMED SIGNED. ALL DISCHARGE INSTRUCTIONS DISCUSSED WITH PT. PT. VERBALIZED UNDERSTANDING AND SIGNED ALL NECESSARY PAPERWORK. PT. LEFT VIA PRIVATE CAR DRIVEN BY HER .
== END 2016-12-23 17:25 | disposition home or self-care (01) | DRG 532 ==
LOC: ER 21:39 → MED 12-23 01:47 → TELE 12-23 05:07
PROVIDERS: ADMIT Family Medicine; ATTEND Internal Medicine
DX: N83.201 Unspecified ovarian cyst, right side (principal); F11.20 Opioid dependence, uncomplicated; I10 Essential (primary) hypertension; N39.0 Urinary tract infection, site not specified; E66.9 Obesity, unspecified; D64.9 Anemia, unspecified; F41.9 Anxiety disorder, unspecified; K44.9 Diaphragmatic hernia without obstruction or gangrene; K57.30 Diverticulosis of large intestine without perforation or abscess without bleeding; Z79.899 Other long term (current) drug therapy; Z90.49 Acquired absence of other specified parts of digestive tract; Z97.5 Presence of (intrauterine) contraceptive device; Z98.84 Bariatric surgery status; Z88.4 Allergy status to anesthetic agent; Z88.8 Allergy status to other drugs, medicaments and biological substances; Z68.33 Body mass index [BMI] 33.0-33.9, adult
CPT/HCPCS: 36415; 76856-TC; 80048-TC; 80076-TC; 81000-TC; 82962-TC; 84702-TC; 85025-TC; 85730-TC; 87081-TC; 87086-TC; A4216; A4606; A6402; J0696; J1170; J2354; J2405; J7030; J7050; J7060; J8597; Z7610

== ENCOUNTER 2016-12-25 00:09 | Emergency (ER) | payer OTHER ==
[~2016-12-25] VITALS: Ht 162.6 cm; Wt 83.9 kg
[2016-12-25 00:12] VITALS: BP 115/85
--- NOTE | 2016-12-25 00:35 | NUR ---
mateo zepeda at bedside to natalie thibodeaux.
== END 2016-12-25 01:04 | disposition home or self-care (01) ==
LOC: ER 00:12
DX: N83.209 Unspecified ovarian cyst, unspecified side (principal); G89.29 Other chronic pain; Z88.6 Allergy status to analgesic agent
CPT/HCPCS: 82962 ×2; 99282; A4606; Z7610

== ENCOUNTER 2017-01-06 12:33 | Emergency (ER) | payer OTHER ==
[~2017-01-06] VITALS: Ht 162.6 cm; Wt 83.9 kg
--- NOTE | 2017-01-06 13:22 | NUR ---
AAOX3, CAME TO ER C/O "BLOOD SUGAR UP AND DOWN. IT WAS 54 AT HOME. I'M NOT FEELING WELL, MY CURRENT SUGAR IS 94". RESP IS EVEN AND UNLABORED WITH NAD NOTED. SKIN IS WARM AND DRY. AWAITING MD FOR EVAL.
[2017-01-06] MEDS ORDERED: IV NS 0.9% 1,000 ML BAG IV ONE (14:30)
[2017-01-06] MEDS ORDERED: ONDANSETRON HCL/PF 4 MG/2 ML VIAL IVP ONE (14:30)
[2017-01-06] MEDS ORDERED: ONDANSETRON HCL/PF 4 MG/2 ML VIAL ONE (14:59)
[2017-01-06 15:00] LABS: BASOPHILS # (AUTO) 0.1 /CMM (0.0-0.2); BASOPHILS % (AUTO) 0.9 % (0.0-2.0); EOSINOPHILS # (AUTO) 0.2 /CMM (0.0-0.7); EOSINOPHILS % (AUTO) 2.1 % (0.0-6.0); HEMATOCRIT 34 % (33-45); HEMOGLOBIN 10.9 g/dL (11.5-14.8); LYMPHOCYTES # (AUTO) 1.9 /CMM (0.8-4.8); LYMPHOCYTES % (AUTO) 20.4 % (20.0-44.0); MEAN CORPUSCULAR HEMOGLOBIN 24 PG (26.0-33.0); MEAN CORPUSCULAR HGB CONC 32 g/dl (31.0-36.0); MEAN CORPUSCULAR VOLUME 74 fL (82-100); MONOCYTES # (AUTO) 0.6 /CMM (0.1-1.30); MONOCYTES % (AUTO) 6.3 % (2.0-12.0); NEUTROPHILS # (AUTO) 6.6 /CMM (1.8-8.9); NEUTROPHILS % (AUTO) 70.3 % (43.0-81.0); PLATELET COUNT (AUTO) 415 /CMM (150-450); RDW COEFFICIENT OF VARIATION 15.4 (11.5-15.0); RED BLOOD CELL COUNT(AUTO) 4.61 MIL/uL (4.0-5.2); WHITE BLOOD COUNT (AUTO) 9.4 K/uL (4.3-11.0)
[2017-01-06] MEDS ORDERED: diphenhydrAMINE HCL 50 MG/ML VIAL ONE (15:03)
[2017-01-06 15:07] LABS: CALCIUM, SERUM 8.6 mg/dL (8.5-10.1); CREATININE 0.5 mg/dL (0.6-1.3)
[2017-01-06 15:09] LABS: APPEARANCE,URINE Clear (CLEAR); BILIRUBIN,URINE SMALL (NEGATIVE); BLOOD, URINE Negative Ery/uL (NEGATIVE); COLOR,URINE Yellow (YELLOW); KETONES,URINE 15 (NEGATIVE); LEUKOCYTE ESTERASE ,URINE Negative (NEGATIVE); NITRITE, URINE Negative (NEGATIVE); PH,URINE 5.5 (5.0-8.0); PREGNANCY TEST URINE QUAL NEGATIVE (NEGATIVE); PROTEIN,URINE Negative (NEGATIVE); UGLUCOSE Negative (NEGATIVE)
[2017-01-06 15:16] LABS: BACTERIA,URINE Few /HPF (None Seen); RBC,URINE 0-2 /HPF (0-2); SQUAMOUS EPITHELIAL CELL,UR Few /HPF (None Seen); WBC,URINE 0-2 /HPF (0-3)
[2017-01-06] MEDS ORDERED: diphenhydrAMINE HCL 50 MG/ML VIAL IV ONE (15:30)
--- NOTE | 2017-01-06 15:32 | NUR ---
PATIENT CAME BACK FROM CT.
--- NOTE | 2017-01-06 16:30 | NUR ---
Patient is resting comfortably in bed with eyes closed. Easily aroused. VSS
--- NOTE | 2017-01-06 17:50 | NUR ---
Patient is resting comfortably in bed with eyes closed. Easily aroused. VSS
--- NOTE | 2017-01-06 18:05 | NUR ---
KATHLEEN SCHREIBER AT FOR AN UPDATE AND RE-EVAL
--- NOTE | 2017-01-06 18:44 | NUR ---
IV removed. Catheter intact and site benign. Pressure and 4x4 applied to site. No bleeding noted.Patient discharged to home in stable condition. Written and verbal after care instructions given. Patient verbalizes understanding of instruction.
[2017-01-06 18:46] VITALS: BP 118/71
== END 2017-01-06 18:47 | disposition home or self-care (01) ==
LOC: ER 12:37
DX: R51 Headache (principal); R10.9 Unspecified abdominal pain; R11.2 Nausea with vomiting, unspecified; F31.9 Bipolar disorder, unspecified
CPT/HCPCS: 36415; 70450; 80048; 80305; 81001; 82962; 84703; 85025; 93005; 96361; 96374; 96375; 99285; A4606; J1200; J2405; J7030; Z7610; 81000-TC

== ENCOUNTER 2017-03-31 00:19 | Emergency (ER) | payer OTHER ==
[~2017-03-31] VITALS: Ht 162.6 cm; Wt 83.9 kg
[2017-03-31 00:22] VITALS: BP 113/73
== END 2017-03-31 00:47 | disposition home or self-care (01) ==
LOC: ER 00:19
DX: K08.89 Other specified disorders of teeth and supporting structures (principal); D64.9 Anemia, unspecified; Z88.8 Allergy status to other drugs, medicaments and biological substances
CPT/HCPCS: 99283; A4606; Z7610

== ENCOUNTER 2017-05-31 19:22 | Emergency (ER) | payer OTHER ==
[~2017-05-31] VITALS: Ht 162.6 cm; Wt 88.5 kg
[2017-05-31 20:06] VITALS: BP 128/75
--- NOTE | 2017-05-31 21:06 | NUR ---
CALLED X2; NO ANSWER
--- NOTE | 2017-05-31 21:14 | NUR ---
CALLED TO ROOM NO RESPONSE.
--- NOTE | 2017-05-31 21:17 | NUR ---
INFORMED BY ADMITTING "PT LEFT"
== END 2017-05-31 21:18 | disposition left against medical advice (07) ==
LOC: ER 19:26
DX: Z53.21 Procedure and treatment not carried out due to patient leaving prior to being seen by health care provider (principal)
CPT/HCPCS: A4606; Z7610

== ENCOUNTER 2017-08-28 01:04 | Emergency (ER) | payer OTHER ==
[~2017-08-28] VITALS: Ht 167.6 cm; Wt 77.1 kg
[2017-08-28 01:20] VITALS: BP 140/86
[2017-08-28] MEDS ORDERED: HYDROCODONE/APAP 5/325MG 1 EACH TABLET ONE (01:24)
--- NOTE | 2017-08-28 01:26 | NUR ---
ADVICE PT NOT TO DRIVE OR OPERATE ANY MACHINERY DUE TO PT WAS GIVEN NARCOTIC MEDICINE.
[2017-08-28] MEDS ORDERED: HYDROCODONE/APAP 5/325MG 1 EACH TABLET PO ONE (01:30)
== END 2017-08-28 01:27 | disposition home or self-care (01) ==
LOC: ER 01:05
DX: K08.89 Other specified disorders of teeth and supporting structures (principal); D64.9 Anemia, unspecified; Z98.84 Bariatric surgery status; Z88.8 Allergy status to other drugs, medicaments and biological substances; Z60.2 Problems related to living alone
CPT/HCPCS: 99282; A4606; Z7610

== ENCOUNTER 2017-10-26 10:12 | Emergency (ER) | payer OTHER ==
[~2017-10-26] VITALS: Ht 162.6 cm; Wt 86.2 kg
--- NOTE | 2017-10-26 10:15 | NUR ---
ABD PAIN W/ N/V X 3 DAYS. NO ACUTE DISTRESS NOTED. VSS. AMBULATORY. ALL SAFETY MEASURES IN PLACE. CALL LIGHT WITHIN REACH
[2017-10-26] MEDS ORDERED: diphenhydrAMINE HCL 25 MG CAPSULE ONE (10:43)
[2017-10-26] MEDS ORDERED: IV NS 0.9% 1,000 ML BAG IV ONE (11:00)
[2017-10-26] MEDS ORDERED: DIPHENHYDRAMINE HCL 12.5 MG/5 ML UDC PO ONE (11:00)
[2017-10-26 11:07] LABS: BASOPHILS # (AUTO) 0.1 /CMM (0.0-0.2); BASOPHILS % (AUTO) 1.9 % (0.0-2.0); EOSINOPHILS % (AUTO) 1.9 % (0.0-6.0); HEMATOCRIT 35 % (33-45); HEMOGLOBIN 11.1 g/dL (11.5-14.8); LYMPHOCYTES # (AUTO) 1.5 /CMM (0.8-4.8); LYMPHOCYTES % (AUTO) 25.9 % (20.0-44.0); MEAN CORPUSCULAR HGB CONC 32 g/dl (31.0-36.0); MEAN CORPUSCULAR VOLUME 68 fL (82-100); MONOCYTES # (AUTO) 0.4 /CMM (0.1-1.30); MONOCYTES % (AUTO) 6.7 % (2.0-12.0); NEUTROPHILS # (AUTO) 3.9 /CMM (1.8-8.9); NEUTROPHILS % (AUTO) 63.6 % (43.0-81.0); PLATELET COUNT (AUTO) 439 /CMM (150-450); RDW COEFFICIENT OF VARIATION 18.3 (11.5-15.0); RED BLOOD CELL COUNT(AUTO) 5.11 MIL/uL (4.0-5.2)
[2017-10-26] MEDS ORDERED: diphenhydrAMINE HCL 50 MG/ML VIAL ONE ×2 (11:11→12:56)
[2017-10-26 11:12] LABS: CALCIUM, SERUM 8.8 mg/dL (8.5-10.1); CREATININE 0.6 mg/dL (0.6-1.3); POTASSIUM 4.2 mmol/L (3.5-5.1)
[2017-10-26 11:17] LABS: ALBUMIN 3.2 g/dL (3.4-5.0); BILIRUBIN,DIRECT 0.1 mg/dL (0.0-0.2); BILIRUBIN,TOTAL 0.5 mg/dL (0.2-1.0); TOTAL PROTEIN, SERUM 7.4 g/dL (6.4-8.2)
[2017-10-26] MEDS ORDERED: diphenhydrAMINE HCL 50 MG/ML VIAL IV ONE ×3 (11:30→13:30)
[2017-10-26 12:25] LABS: BAND % (MANUAL) 1 % (0.0-5.0); EOSINOPHILS % (MANUAL) 1 % (0-4); LYMPHOCYTES % (MANUAL) 28 % (16-48); MONOCYTES % (MANUAL) 5 % (0-11.0); NEUTROPHILS % (MANUAL) 65 (42-76)
[2017-10-26] MEDS ORDERED: ONDANSETRON HCL/PF 4 MG/2 ML VIAL ONE (12:35)
[2017-10-26] MEDS ORDERED: ONDANSETRON HCL/PF 4 MG/2 ML VIAL IV ONE (13:00)
--- NOTE | 2017-10-26 13:00 | NUR ---
ANOTHER 25MG BENADRYL IVP GIVEN RAC. Addendum: 10/26/17 at 1321 by ADEBAYO PER MD NERI.
[2017-10-26] MEDS ORDERED: MAG HYDROX/AL HYDROX/SIMETH 30 ML UDC PO ONE (14:00)
[2017-10-26] MEDS ORDERED: LIDOCAINE VISCOUS 2% UD 15 ML UDC MM ONE (14:00)
[2017-10-26] MEDS ORDERED: FAMOTIDINE (20 MG) 20 MG TABLET PO ONE (14:00)
[2017-10-26] MEDS ORDERED: FAMOTIDINE (20 MG) 20 MG TABLET ONE (14:02)
[2017-10-26] MEDS ORDERED: LIDOCAINE VISCOUS 2% UD 15 ML UDC ONE (14:02)
[2017-10-26] MEDS ORDERED: MAG HYDROX/AL HYDROX/SIMETH 30 ML UDC ONE (14:02)
[2017-10-26 14:15] VITALS: BP 140/90
== END 2017-10-26 14:16 | disposition home or self-care (01) ==
LOC: ER 10:18
DX: R10.13 Epigastric pain (principal); R11.2 Nausea with vomiting, unspecified; D64.9 Anemia, unspecified; Z88.6 Allergy status to analgesic agent; Z88.8 Allergy status to other drugs, medicaments and biological substances; Z98.84 Bariatric surgery status
CPT/HCPCS: 36415; 80048-TC; 80076-TC; 83690-TC; 84703-TC; 85025-TC; A4606; J1200; J2405; J7030; Q0163; Z7610